=== PATIENT | male | born 1955 | race Caucasian/White ===

== ENCOUNTER 2021-09-05 17:24 | Inpatient (IN) | payer MEDICAID ==
[~2021-09-05] VITALS: Ht 188 cm; Wt 77.1 kg
[2021-09-05] MEDS ORDERED: METF-442 PO (17:41)
[2021-09-05] MEDS ORDERED: LEVO50TA8 PO (17:41)
[2021-09-05] MEDS ORDERED: BP pill (17:41)
[2021-09-05] MEDS ORDERED: IOHEXOL 300MG/ML 100 ML INFUS..BTL ONE (17:48)
[2021-09-05] MEDS ORDERED: SWABABLE VALVE TRANSFER SET EA MC ONE (17:48)
[2021-09-05] MEDS ORDERED: IV NORMAL SALINE 250 ML IV ONE (17:50)
[2021-09-05] MEDS ORDERED: PIPERACILLIN SODIUM/TAZOBACTAM 3.375 G in IV DEXTROSE 5% 50 ML IV ONE (18:00)
[2021-09-05] MEDS ORDERED: IV NORMAL SALINE 500 ML BAG IV ONE (18:00)
[2021-09-05 18:12] LABS: HEMATOCRIT 41.3 % (36.7-47.1); MEAN CORPUSCULAR HEMOGLOBIN 28.5 uug (23.8-33.4); MEAN CORPUSCULAR VOLUME 83.6 fL (73.0-96.2); PLATELET COUNT (AUTO) 195 K/uL (152-348)
[2021-09-05 18:17] LABS: CREATININE 1.2 mg/dL (0.6-1.3); POTASSIUM 4.3 mmol/L (3.5-5.1)
[2021-09-05 18:23] LABS: BILIRUBIN,TOTAL 0.4 mg/dL (0.2-1.0); TOTAL PROTEIN, SERUM 7.9 g/dL (6.4-8.2)
[2021-09-05] MEDS ORDERED: ACETAMINOPHEN ES 500 MG TABLET ONE (18:23)
[2021-09-05] MEDS: VANCOMYCIN IV 1,000 MG in IV DEXTROSE 5% 250 ML IV ONE ×2 (18:29→19:08)
--- NOTE | 2021-09-05 18:29 | NUR ---
IV started 20g left AC.
[2021-09-05] MEDS ORDERED: ACETAMINOPHEN 650 MG/20.3 ML LIQUID UDC PO ONE (18:30)
[2021-09-05] MEDS ORDERED: PIPERACILLIN/TAZOBACTAM/D5W 50 ML IV ONE ×2 (18:38→22:46)
[2021-09-05] MEDS ORDERED: ACETAMINOPHEN 325 MG TABLET PO ONE (18:45)
[2021-09-05] MEDS ORDERED: VANCOMYCIN IV 200 ML ONE (19:01)
--- NOTE | 2021-09-05 19:12 | NUR ---
pt awake alert mostly Azeri speaking, daughter at bedside she speaks Lao and is able to translate. pt does not c/o any pain.
--- NOTE | 2021-09-05 19:16 | NUR ---
pt taken for cat scan.
--- NOTE | 2021-09-05 19:45 | NUR ---
pt returned from cat scan.
--- NOTE | 2021-09-05 20:00 | NUR ---
call to [facility] for admission.
--- NOTE | 2021-09-05 20:20 | NUR ---
Dr. Joyce called back and spoke with Dr. Man.
--- NOTE | 2021-09-05 20:29 | NUR ---
report to Modesto mendez to go to room 303 tele status.
[2021-09-05 20:55] VITALS: BP 112/62
--- NOTE | 2021-09-05 21:01 | NUR ---
pt transported to room [facility]. AMINA Sebastian at bedside to recevie the pt.
[2021-09-05] MEDS ORDERED: DEXTROSE 50% 50 ML DISP.SYRIN IV PRN (22:00)
[2021-09-05] MEDS ORDERED: ONDANSETRON 4 MG/2 ML VIAL IV PRN (22:00)
[2021-09-05] MEDS ORDERED: MAGNESIUM HYDROXIDE 30 ML LIQUID UDC PO PRN (22:00)
[2021-09-05] MEDS: MORPHINE SULFATE 2 MG/1 ML DISP.SYRIN IV PRN (22:43)
[2021-09-05] MEDS: ENOXAPARIN SODIUM 40 MG/0.4 ML DISP.SYRIN SQ SCH (22:47)
[2021-09-05] MEDS: IV 1/2NS 1000 ML 1,000 ML IV PRN (22:49)
[2021-09-05] MEDS: BLOOD SUGAR DIAGNOSTIC 1 EACH STRIP VI SCH (23:01)
[2021-09-05] MEDS: INSULIN REGULAR, HUMAN 300 UNITS/3 ML VIAL SQ PRN (23:04)
[2021-09-06] VITALS (7 sets, daily range): BP systolic 90–110; BP diastolic 51–58
--- NOTE | 2021-09-06 00:08 | NUR ---
received a 66 yr old female admitted for left facial pain associated with chills but no fever. Admitting diagnosis of cellulitis/ sepsis. Ambulatory. Hx of Bladder Ca, HTN, and DM. AAOx4 speaks mainly Chadian but able to make needs known.Patient has a low grade temperature of 99.9 HR 86 BP 125/56 98% on 2L. Tolerated po diet well. On IV ABT given as scheduled. Has a left arm heplock #20 flushed and patent. Voiding well. Accucheck 316 with 8units humalog given. Skin intact. IVF's infusing well. complained of left sided facial pain, morphine 2mg IV given as needed. Relief noted. Will monitor patient.
[2021-09-06] MEDS ORDERED: PIPERACILLIN SODIUM/TAZOBACTAM 3.375 G in IV DEXTROSE 5% 50 ML IV ONE (03:00)
[2021-09-06] MEDS: PANTOPRAZOLE SODIUM 40 MG TABLET.DR PO SCH (06:05)
[2021-09-06] MEDS: LEVOTHYROXINE SODIUM 50 MCG TABLET PO SCH (06:05)
[2021-09-06] MEDS: BLOOD SUGAR DIAGNOSTIC 1 EACH STRIP VI SCH ×4 (06:32→21:01)
--- NOTE | 2021-09-06 06:37 | NUR ---
Slept well through out the night. No acute distress noted. Will monitor patient. Denies any pain at this time. Voiding well in the urinal.
[2021-09-06 07:09] LABS: MEAN CORPUSCULAR HEMOGLOBIN 28.7 uug (23.8-33.4); MEAN CORPUSCULAR VOLUME 83.6 fL (73.0-96.2); PLATELET COUNT (AUTO) 165 K/uL (152-348)
[2021-09-06 07:25] LABS: BILIRUBIN,TOTAL 0.7 mg/dL (0.2-1.0); CREATININE 1.1 mg/dL (0.6-1.3); PHOSPHOROUS 2.5 mg/dL (2.5-4.9); TOTAL PROTEIN, SERUM 6.8 g/dL (6.4-8.2)
[2021-09-06 07:34] LABS: MAGNESIUM 1.6 mg/dL (1.8-2.4)
[2021-09-06 07:35] LABS: THYROID STIMULATING HORMONE 2.787 mIU/mL (0.358-3.740)
[2021-09-06] MEDS: PIPERACILLIN SODIUM/TAZOBACTAM 3.375 G in IV DEXTROSE 5% 50 ML IV SCH ×3 (08:38→20:20)
[2021-09-06] MEDS: LISINOPRIL 10 MG TABLET PO SCH (08:39)
[2021-09-06] MEDS: INSULIN REGULAR, HUMAN 300 UNIT/3 ML VIAL SQ PRN ×3 (08:42→16:44)
[2021-09-06] MEDS: VANCOMYCIN IV 1,250 MG in IV DEXTROSE 5% 250 ML IV SCH (09:58)
[2021-09-06] MEDS: MORPHINE SULFATE 2 MG/1 ML DISP.SYRIN IV PRN (11:15)
[2021-09-06] MEDS: MAGNESIUM SULFATE/D5W 100 ML IV SCH ×2 (11:16→12:45)
[2021-09-06] MEDS: ACETAMINOPHEN 325 MG TABLET PO PRN ×2 (15:10→21:46)
--- NOTE | 2021-09-06 15:30 | NUR ---
took over care- report received from am RN- temp of 101.3- was given Tylenol by previous RNLayla Ceja [employer] informed, no new orders given, cooling measures done, family member at bedside, updated, no distress noted,, on 2L - no shortness of breath noted, will continue to monitor
[2021-09-06] MEDS: IV 1/2NS 1000 ML 1,000 ML IV PRN (16:51)
--- NOTE | 2021-09-06 19:04 | NUR ---
no distress noted, all needs attended and met, call light within reach
--- NOTE | 2021-09-06 19:30 | NUR ---
Patient alert oriented, no sob no chest pain, tele monitor sinus rhythm at this time, at bedside, cont abx for facial cellulitis, with no adverse reaction noted, afebrile, cont to monitor.
[2021-09-06] MEDS: ENOXAPARIN SODIUM 40 MG/0.4 ML DISP.SYRIN SQ SCH (21:08)
[2021-09-06] MEDS: INSULIN GLARGINE,HUM 300 UNITS/3 ML CARTRIDGE SQ SCH (21:09)
[2021-09-07] VITALS: BP 90/47
[2021-09-07] MEDS: VANCOMYCIN IV 1,250 MG in IV DEXTROSE 5% 250 ML IV SCH (00:33)
[2021-09-07] MEDS: PIPERACILLIN SODIUM/TAZOBACTAM 3.375 G in IV DEXTROSE 5% 50 ML IV SCH ×4 (01:33→19:59)
[2021-09-07 04:00] VITALS: BP 101/58
--- NOTE | 2021-09-07 04:19 | NUR ---
Patient asleep, afebrile cont on abx, for facial cellulitis, no complain of pain, cont to monitor.
[2021-09-07 04:25] VITALS: BP 101/58
[2021-09-07] MEDS: BLOOD SUGAR DIAGNOSTIC 1 EACH STRIP VI SCH ×4 (05:27→20:08)
[2021-09-07] MEDS: LEVOTHYROXINE SODIUM 50 MCG TABLET PO SCH (06:04)
[2021-09-07] MEDS: PANTOPRAZOLE SODIUM 40 MG TABLET.DR PO SCH (06:04)
[2021-09-07 06:36] LABS: HEMATOCRIT 35.6 % (36.7-47.1); MEAN CORPUSCULAR HEMOGLOBIN 28.2 uug (23.8-33.4); MEAN CORPUSCULAR VOLUME 83.7 fL (73.0-96.2); PLATELET COUNT (AUTO) 161 K/uL (152-348)
[2021-09-07 07:00] LABS: CREATININE 1.2 mg/dL (0.6-1.3); MAGNESIUM 2.1 mg/dL (1.8-2.4); POTASSIUM 3.8 mmol/L (3.5-5.1)
[2021-09-07] MEDS: LISINOPRIL 10 MG TABLET PO SCH (08:17)
[2021-09-07] MEDS: INSULIN REGULAR, HUMAN 300 UNIT/3 ML VIAL SQ PRN ×4 (08:21→20:14)
[2021-09-07] MEDS: IV 1/2NS 1000 ML 1,000 ML IV PRN (10:36)
[2021-09-07 12:00] VITALS: BP 108/55
[2021-09-07 15:48] VITALS: BP 107/59
[2021-09-07] MEDS ORDERED: VANCOMYCIN IV 1,250 MG in IV DEXTROSE 5% 250 ML IV SCH (18:00)
[2021-09-07 20:00] VITALS: BP 123/72
[2021-09-07] MEDS: ENOXAPARIN SODIUM 40 MG/0.4 ML DISP.SYRIN SQ SCH (20:12)
[2021-09-07] MEDS: INSULIN GLARGINE,HUM 300 UNITS/3 ML CARTRIDGE SQ SCH (20:13)
[2021-09-08] VITALS: BP 119/66
[2021-09-08] MEDS: IV 1/2NS 1000 ML 1,000 ML IV PRN ×2 (01:37→18:11)
[2021-09-08] MEDS: PIPERACILLIN SODIUM/TAZOBACTAM 3.375 G in IV DEXTROSE 5% 50 ML IV SCH ×4 (01:37→21:04)
[2021-09-08 04:00] VITALS: BP 106/67
[2021-09-08] MEDS: PANTOPRAZOLE SODIUM 40 MG TABLET.DR PO SCH (06:13)
[2021-09-08] MEDS: LEVOTHYROXINE SODIUM 50 MCG TABLET PO SCH (06:13)
[2021-09-08] MEDS: BLOOD SUGAR DIAGNOSTIC 1 EACH STRIP VI SCH ×4 (06:40→20:40)
[2021-09-08 06:47] LABS: CREATININE 0.9 mg/dL (0.6-1.3)
[2021-09-08] MEDS: VANCOMYCIN IV 1,250 MG in IV DEXTROSE 5% 250 ML IV SCH ×2 (08:22→22:07)
[2021-09-08] MEDS: LISINOPRIL 10 MG TABLET PO SCH (08:22)
[2021-09-08] MEDS: INSULIN REGULAR, HUMAN 300 UNIT/3 ML VIAL SQ PRN ×3 (08:52→16:13)
[2021-09-08 11:01] VITALS: BP 114/61
[2021-09-08] MEDS: GLUCERNA SHAKE 237 ML CAN PO SCH ×2 (11:04→16:07)
[2021-09-08 13:26] LABS: *BILIRUBIN,URIN NEGATIVE (NEGATIVE); *BLOOD, URINE NEGATIVE (NEGATIVE); *CLARITY,URINE CLEAR (CLEAR); *COLOR,URINE YELLOW (YELLOW); *KETONES,URINE NEGATIVE (NEGATIVE); LEUKOCYTE ESTERASE ,URINE NEGATIVE (NEGATIVE); NITRITE, URINE NEGATIVE (NEGATIVE); PH,URINE 7.5 (5.0-8.0); UGLUCOSE 2+ (NEGATIVE)
[2021-09-08 15:17] VITALS: BP 114/61
--- NOTE | 2021-09-08 18:27 | NUR ---
Patient received care well throughout shift with no complaints of pain or distress. IV site patent and intact running 1/2 NS at 80cc/hr. Patient is AOx4, on 2L of oxygen via nasal canula. Patient has BRP. Patient afebrile during shift. Bed left in lowest position with call light within reach. Comfort measures provided. Will endorse information to PM nurse.
[2021-09-08 20:00] VITALS: BP 113/58
[2021-09-08] MEDS: ENOXAPARIN SODIUM 40 MG/0.4 ML DISP.SYRIN SQ SCH (20:47)
[2021-09-08] MEDS: INSULIN GLARGINE,HUM 300 UNITS/3 ML CARTRIDGE SQ SCH (20:48)
[2021-09-08] MEDS: INSULIN REGULAR, HUMAN 300 UNITS/3 ML VIAL SQ PRN (20:49)
--- NOTE | 2021-09-08 21:50 | NUR ---
Patient in bed alert oriented, no sob no chest pain, tele monitor sinus rhythm, no complain of pain, afebrile, no facial swelling noted, cont abx for facial cellulitis, cont to monitor.
[2021-09-09] VITALS: BP 116/67
[2021-09-09] MEDS: PIPERACILLIN SODIUM/TAZOBACTAM 3.375 G in IV DEXTROSE 5% 50 ML IV SCH ×2 (03:47→10:11)
[2021-09-09 04:00] VITALS: BP 108/64
--- NOTE | 2021-09-09 04:52 | NUR ---
Patient asleep but arousable no sob no chest pain, no complain of pain, tele monitor sinus rhythm, Patient afebrile, no adverse reaction of abx for facial cellulitis, cont to monitor.
[2021-09-09] MEDS: PANTOPRAZOLE SODIUM 40 MG TABLET.DR PO SCH (05:55)
[2021-09-09] MEDS: LEVOTHYROXINE SODIUM 50 MCG TABLET PO SCH (05:55)
[2021-09-09] MEDS: BLOOD SUGAR DIAGNOSTIC 1 EACH STRIP VI SCH ×2 (06:25→11:25)
[2021-09-09] MEDS: INSULIN REGULAR, HUMAN 300 UNIT/3 ML VIAL SQ PRN ×2 (08:14→11:27)
[2021-09-09] MEDS: LISINOPRIL 10 MG TABLET PO SCH (08:15)
[2021-09-09] MEDS: GLUCERNA SHAKE 237 ML CAN PO SCH (08:16)
[2021-09-09 11:20] VITALS: BP 109/62
[2021-09-09] MEDS ORDERED: LEVO25TA9 PO ×2 (11:27→15:00)
[2021-09-09] MEDS ORDERED: SIMV10TA98 PO ×2 (11:27→15:00)
[2021-09-09] MEDS ORDERED: AMOX-430 PO ×2 (11:27→15:00)
[2021-09-09] MEDS ORDERED: METF-442 PO ×2 (11:27→15:00)
[2021-09-09] MEDS ORDERED: GLIM4TAB37 PO (11:27)
[2021-09-09] MEDS ORDERED: LISI30TA4 PO ×2 (11:27→15:00)
[2021-09-09] MEDS ORDERED: INSU100V7 SQ ×2 (12:04→15:00)
--- NOTE | 2021-09-09 13:09 | NUR ---
Education provided for patient regarding insulin administration, and checking blood sugar levels. Rhonda Alma at bedside for translation. Patient able to return demonstrate how to check blood sugar level, aspirate insulin, and administer insulin in proper locations.
--- NOTE | 2021-09-09 15:20 | NUR ---
Patient discharged from unit. IV site removed. ID band removed. Discharge education provided. Family notified to contact for any questions regarding insulin administration.
== END 2021-09-09 15:10 | disposition home or self-care (01) | DRG 720 ==
LOC: ER 17:28 → TELE3 20:40
PROVIDERS: ADMIT Nurse Practitioner Family; ATTEND Nurse Practitioner Family
DX: A41.9 Sepsis, unspecified organism (principal); N17.0 Acute kidney failure with tubular necrosis; E87.1 Hypo-osmolality and hyponatremia; D68.69 Other thrombophilia; C67.9 Malignant neoplasm of bladder, unspecified; L03.211 Cellulitis of face; E03.9 Hypothyroidism, unspecified; E11.65 Type 2 diabetes mellitus with hyperglycemia; I10 Essential (primary) hypertension; Z79.84 Long term (current) use of oral hypoglycemic drugs; Z20.822 Contact with and (suspected) exposure to COVID-19; K11.20 Sialoadenitis, unspecified
CPT/HCPCS: 36415; 70487; 71045; 83735; 84100; 84443; 85025; 86140; 87040; 87086; 93005; A4663; A9150; G0378; J1650; J1815; J2270; J2543; J3370; J3475; J7050; Q9967